=== PATIENT | female | born 1995 | race Caucasian/White ===

== ENCOUNTER → 2018-11-22 | Outpatient (CLI) | payer BC ==
--- NOTE | 2018-11-22 19:18 | Diagnostic Imaging Report ---
EXAMINATION: Abdominal radiographs, single supine view. DATE: November 22, 2018. CLINICAL INDICATION: 23-year-old female, lower pelvic pain worsening the past couple days. COMPARISON: None. COMMENTS: There is an intrauterine contraceptive device which is to the right of midline by approximately 2.3 cm. This is indeterminate in position. There are gas-filled segments of large bowel which are not abnormally distended. There is a moderate volume colonic stool. There is no identified abnormal radiodensity overlying the kidneys or expected locations of the ureters or overlying the right lower quadrant. The upper abdomen is not entirely included in the [id number]. There is no identified free intraperitoneal air, pneumatosis or portal venous gas. IMPRESSION: 1. Intrauterine contraceptive device projecting to the right of midline measuring approximately 2.3 cm from the midline. This is indeterminate in position. Ultrasound of the female pelvis may be helpful for further assessment of intrauterine contraceptive device positioning. 2. No otherwise radiographically apparent acute abdominal abnormality. Report was given to Dr. Bhardwaj at 7:15 p.m., by walter. Dictated by: Dictated on workstation # [id number]
== END ==
LOC: RAD 17:38
PROVIDERS: ATTEND Family Medicine
DX: R10.31 Right lower quadrant pain (principal); Z97.5 Presence of (intrauterine) contraceptive device
CPT/HCPCS: 74018

== ENCOUNTER → 2019-01-08 | Outpatient (CLI) | payer BC ==
[2019-01-08 14:28] LABS: BILIRUBIN,URINE NEGATIVE (NEGATIVE); CLARITY,URINE VERY CLOUDY; COLOR,URINE YELLOW; GLUCOSE, URINE (UA) NEGATIVE (NEGATIVE); KETONES,URINE NEGATIVE (NEGATIVE); LEUKOCYTE ESTERASE ,URINE 3+ (NEGATIVE); NITRITE,URINE POSITIVE (NEGATIVE); PH,URINE 5 (5-9); PROTEIN,URINE 1+ (NEGATIVE); UROBILINOGEN,URINE NORMAL (NORMAL)
[2019-01-08 14:51] LABS: BACTERIA,URINE LARGE /HPF; WBC,URINE >100 /HPF
== END ==
LOC: LAB 14:18
PROVIDERS: ATTEND Family Medicine
DX: R30.0 Dysuria (principal); R35.0 Frequency of micturition
CPT/HCPCS: 81000; 87077; 87088; 87186

== ENCOUNTER → 2020-05-29 | Outpatient (CLI) | payer BC ==
--- NOTE | 2020-05-29 14:21 | Diagnostic Imaging Report ---
PROCEDURE: CT abdomen and pelvis without contrast. TECHNIQUE: Multiple contiguous axial images were obtained through the abdomen and pelvis without the use of intravenous contrast. Auto Exposure Controls were utilized during the CT exam to meet ALARA standards for radiation dose reduction. INDICATION: Recurrent urinary tract infections with burning and pelvic pain. No prior studies are available for comparison. The lung bases are clear. Liver and gallbladder are unremarkable. No biliary ductal dilatation is seen. Pancreas and spleen are unremarkable. No adrenal mass is detected. No renal calculi or hydronephrosis is detected. The aorta is nonaneurysmal. The small and large bowel loops are normal caliber. No obstruction is detected. No inflammatory changes are seen. Uterus and bladder are unremarkable. IMPRESSION: Unremarkable noncontrast CT of the abdomen and pelvis. No urinary tract calculi or obstruction is identified. No acute feature is detected. Dictated by: Dictated on workstation # [id number]
== END ==
LOC: RAD 13:20
PROVIDERS: ATTEND Urology
DX: N39.0 Urinary tract infection, site not specified (principal)
CPT/HCPCS: 74176